=== PATIENT | male | born 1950 | race Caucasian/White ===

== ENCOUNTER 2017-06-07 06:47 | Day surgery (SDC) | payer OTHER ==
[2017-06-03 14:12] VITALS: BMI 29.9
[~2017-06-07 06:47] MED LIST: BSS (NA/CA/MG/K) BALANCED SALT SOLUTION OPHTH SOLN 15 ML BOTTLE IO ONE; CHONDROITIN SU A/HYALUR SOD 1 KIT IO ONE; LIDOCAINE 1% P/F 10 MG/ML VIAL INF ONE; POVIDONE-IODINE 5% OPHTHALMIC PREP 30 ML SOLUTION OS ONE; TETRACAINE 0.5% OPHTH SOLN 2 ML BOTTLE TP ONE; TOBRA 0.3%/DEXAMETH 0.1% OPHTHALMIC SUSP 2.5 ML BTL OS ONE
[2017-06-07] MEDS: MOXIFLOXACIN HCL 0.5% OPHTHALMIC 3 ML BOTTLE ONE ×3 (07:20→07:35)
[2017-06-07] MEDS: TROPICAMIDE 1% OPHTH SOLN 15 ML BOTTLE ONE ×3 (07:20→07:35)
[2017-06-07] MEDS: CYCLOPENTOLATE HCL 1% OPHTH SOLN 2 ML BOTTLE ONE ×3 (07:20→07:35)
[2017-06-07] MEDS: PHENYLEPHRINE 2.5% OPHTH SOLN 15 ML BOTTLE ONE ×3 (07:20→07:35)
[2017-06-07] MEDS: FLURBIPROFEN 0.03% OPHTH SOLN 2.5 ML BOTTLE ONE ×3 (07:20→07:35)
[2017-06-07 07:27] VITALS: TEMP 98.1
[2017-06-07] MEDS ORDERED: LIDOCAINE HCL/PF 1% SDV 5ML VIAL ONE (07:42)
[2017-06-07] MEDS ORDERED: TETRACAINE 0.5% OPHTH SOLN 2 ML BOTTLE ONE (07:42)
[2017-06-07] MEDS ORDERED: TOBRA 0.3%/DEXAMETH 0.1% OPHTHALMIC SUSP 2.5 ML BTL ONE (07:42)
[2017-06-07] MEDS ORDERED: POVIDONE-IODINE 5% OPHTHALMIC PREP 30 ML SOLUTION ONE (07:43)
[2017-06-07] MEDS ORDERED: BSS (NA/CA/MG/K) BALANCED SALT SOLUTION OPHTH SOLN 15 ML BOTTLE ONE (07:43)
[2017-06-07] MEDS ORDERED: EPINEPHrine/PF 1 MG/1 ML (1:1,000) AMPULE ONE (07:44)
[2017-06-07] MEDS ORDERED: MIDAZOLAM HCL 2 MG/2 ML SINGLE DOSE VIAL ONE (08:11)
[2017-06-07] MEDS ORDERED: TETRACAINE 0.5% OPHTH SOLN 2 ML BOTTLE TP ONE (08:38)
[2017-06-07] MEDS ORDERED: POVIDONE-IODINE 5% OPHTHALMIC PREP 30 ML SOLUTION OS ONE (08:40)
[2017-06-07] MEDS ORDERED: BSS (NA/CA/MG/K) BALANCED SALT SOLUTION OPHTH SOLN 15 ML BOTTLE IO ONE ×2 (08:51→09:10)
[2017-06-07] MEDS ORDERED: LIDOCAINE 1% P/F 10 MG/ML VIAL INF ONE (08:58)
[2017-06-07] MEDS ORDERED: EPINEPHrine/PF 1 MG/1 ML (1:1,000) AMPULE SQ ONE (08:59)
[2017-06-07] MEDS ORDERED: CHONDROITIN SU A/HYALUR SOD 1 KIT IO ONE ×2 (09:04→09:20)
[2017-06-07] MEDS ORDERED: TOBRA 0.3%/DEXAMETH 0.1% OPHTHALMIC SUSP 2.5 ML BTL OS ONE (09:33)
[2017-06-07 13:10] VITALS: BP 139/67; PULSE 69
--- NOTE | 2017-06-08 07:27 | OP ---
DATE OF OPERATION: 06/07/2017 SPECIALIST: Jelena Moses MD PREOPERATIVE DIAGNOSIS: Cataract, left eye. POSTOPERATIVE DIAGNOSIS: Cataract, left eye. PROCEDURE: Phacoemulsification of cataract, left eye, with in-bag placement of SN60WF 22.0 diopter intraocular lens. ANESTHESIA: Local. DESCRIPTION OF PROCEDURE: Patient was brought to the operating room. The left eye was prepped and draped in the usual sterile fashion for ophthalmic surgery after placing tetracaine eye drops. The microscope was swung into position, and a 2.75 keratome was used to enter the anterior chamber at approximately 2 o'clock position with an accessory port made at approximately 5 o'clock position after filling the anterior chamber with 0.5 mL of preservative-free lidocaine and viscoelastic. Cystotome and Utrata forceps was used to make a continuous circular capsulorrhexis. Phacoemulsification was carried out in a fcuoqf-gqo-twtigzf technique after hydrating the lens with BSS and performing hydrodissection and hydrodelineation and rotating the lens freely. I/A was used to remove residual cortical material from the capsular bag, and 22.0 SN60WF lens was folded and injected into the bag, dialing it into position using the [employer] hook. I/A was used to remove residual viscoelastic from the capsular bag and anterior chamber. BSS was used to perform hydration of the corneal lip wound which was then found to be watertight. Contact lens soaked in TobraDex solution for approximately 10 minutes was then draped on the cornea. The eye was patched and shielded. The patient was transferred to recovery room in a stable condition having tolerated the procedure well. Corina [id number]
== END 2017-06-07 10:45 | disposition home or self-care (01) ==
LOC: JASU-SURG 06:47
PROVIDERS: ATTEND Ophthalmology
PROC: 08RK3JZ Replacement of Left Lens with Synthetic Substitute, Percutaneous Approach (ICD-10-PCS; principal; 2017-06-07 09:00)
DX: H26.9 Unspecified cataract (principal)

== ENCOUNTER 2019-06-23 09:19 | Day surgery (SDC) | payer OTHER ==
[2019-06-22 10:44] VITALS: BMI 29.9
[2019-06-23] MEDS ORDERED: BUPIVACAINE HCL/PF 2.5 MG/ML - 30 ML VIAL IJ ONE (11:49)
[2019-06-23] MEDS ORDERED: PROPOFOL 20 ML ONE (12:04)
[2019-06-23] MEDS ORDERED: ceFAZolin SODIUM 1 GM VIAL ONE (12:06)
[2019-06-23] MEDS ORDERED: DEXAMETHASONE SOD PHOSPHATE 4 MG/1 ML VIAL ONE (12:06)
[2019-06-23] MEDS ORDERED: KETOROLAC TROMETHAMINE 30 MG/1 ML VIAL ONE (12:06)
[2019-06-23] MEDS ORDERED: ONDANSETRON 4 MG/2 ML VIAL ONE (12:06)
[2019-06-23] MEDS ORDERED: LIDOCAINE HCL/PF 2% SDV 5ML VIAL ONE (12:06)
[2019-06-23] MEDS ORDERED: BUPIVACAINE HCL/PF 0.25% (2.5MG/ML) 10 ML VIAL IJ ONE ×2 (12:39→13:04)
[2019-06-23] MEDS ORDERED: oxyCODONE HCL 5 MG TABLET PO PRN ×2 (13:19)
[2019-06-23] MEDS ORDERED: ONDANSETRON 4 MG/2 ML VIAL IVPUSH PRN (13:19)
[2019-06-23 14:41] VITALS: BP 145/72; PULSE 74; TEMP 97.6
--- NOTE | 2019-06-23 15:24 | OP ---
DATE OF OPERATION: 06/23/2019 SURGEON: Rodolfo Muñoz MD [employer] ADMINISTRATOR: JAE Dumont PREOPERATIVE DIAGNOSES: 1. Right knee medial and lateral meniscal tear. 2. Right knee cartilage injury. 3. Right knee synovitis. POSTOPERATIVE DIAGNOSES: 1. Right knee medial and lateral meniscal tear. 2. Right knee cartilage injury. 3. Right knee synovitis. PROCEDURE: 1. Right knee arthroscopy with partial meniscectomy medial and lateral meniscus; CPT code 36547. 2. Right knee arthroscopy with chondroplasty and abrasion-plasty; CPT code 24966. 3. Right knee arthroscopy with synovectomy; CPT code 87869. FINDINGS: 1. Medial meniscus: Bprg-hz-nkeegzhar horn tear, posterior one-third. 2. Lateral meniscus: Central body tear. 3. Synovitis patellofemoral medial, lateral and notch area. 4. Diffuse grade 3 cartilage injury 75% medial femoral condyle with 2-3 changes central portion of medial tibial plateau. 5. ACL and PCL intact. 6. Minor diffuse grade 1-2 cartilage injury, lateral joint line. 7. grade 2 injury patella with grade 2-4 changes patellofemoral trochlea and grade 4 changes patellofemoral trochlea. PROCEDURE: Informed consent was obtained. The patient came to the operating room, where the lower extremity was prepped and draped in a sterile fashion. A tourniquet was placed on the upper thigh, but not inflated. Using standard arthroscopic technique, a lateral incision and portal was made to allow for introduction of the camera into the suprapatellar bursa. This was then taken to the medial joint line, where under direct visualization, a medial incision and portal was made. Excessive synovium noted in the medial, lateral and patellofemoral and notch area was removed by an up biter, shaver and Bovie cautery. This was found to bring in inflammatory tissue into the joint surface, a source of pain and dysfunction. Probing of the medial and lateral meniscus found tears, as described in the findings. These were removed with the up biter and shaver and taken back to a stable rim. Grade 2 to 3 degenerative changes were treated with a chondroplasty, removing all flaking surfaces with low-setting Bovie along the periphery to prevent further flaking. Grade 4 changes, as noted, were treated with an abrasoplasty, creating a bleeding surface at the bone/cartilage interface. Aggressive debridement with shaver/erwin created bleeding surface. Micro fracture also done when indicated in findings. All areas of the knee were once again re-examined. The knee was then drained and a single suture was placed in all portals. A sterile dressing was placed and the patient was transferred to the recovery room without complication. The PA listed above was present and assisted at surgery. Their presence was absolutely medically necessary for the completion of the procedure. They helped hold the arthroscopy, pass instruments (and implants when indicated) and the procedure could not have been completed without their assistance. RODOLFO MUÑOZ M.D. [id number]
--- NOTE | 2019-06-28 13:34 | PATH ---
Surgical Pathology Report Patient Name: LINDA JUNIOR [facility]. Rec. #: [id number] /Age/Gender: 1950 (Age: 68) / M Account: [id number] Location: [facility] Taken: 06/23/2019 Received: 06/23/2019 Reported: 06/28/2019 Physicians: Rodolfo Alexander M.D. Specimen(s) Received RIGHT KNEE SHAVINGS Clinical History Derangement of right knee Final Diagnosis KNEE, RIGHT, ARTHROSCOPIC SHAVINGS: FIBROSYNOVIAL TISSUE AND CARTILAGE SHOWING NODULAR AGGREGATES OF CYRSTALLINE CALCIFIC MATERIAL, CONSISTENT WITH CHONDROCALCINOSIS (PSEUDOGOUT). Electronically Signed Griselda Chavez M.D. Gross Description Received in formalin, labeled "right knee shavings," is a 4.5 x 4.0 x 0.3 cm. aggregate of rudolph-yellow soft tissue fragments. A billing customer service representative portion is submitted in one cassette. 06/26/2019 saudi06/26/2019
== END 2019-06-23 15:15 | disposition home or self-care (01) ==
LOC: FASU 09:19
PROVIDERS: ATTEND Orthopaedic Surgery
PROC: 0SBC4ZZ Excision of Right Knee Joint, Percutaneous Endoscopic Approach (ICD-10-PCS; 2019-06-23)
PROC: 0SBC4ZZ Excision of Right Knee Joint, Percutaneous Endoscopic Approach (ICD-10-PCS; 2019-06-23)
PROC: 0SBC4ZZ Excision of Right Knee Joint, Percutaneous Endoscopic Approach (ICD-10-PCS; principal; 2019-06-23 12:38)
DX: S83.241A Other tear of medial meniscus, current injury, right knee, initial encounter (principal); S83.281A Other tear of lateral meniscus, current injury, right knee, initial encounter; S83.8X1A Sprain of other specified parts of right knee, initial encounter; M65.861 Other synovitis and tenosynovitis, right lower leg; X58.XXXA Exposure to other specified factors, initial encounter; Y93.9 Activity, unspecified; Y92.9 Unspecified place or not applicable
CPT/HCPCS: 82962; 88304-TC; 94760